=== PATIENT | female | born 1955 | race Caucasian/White ===

== ENCOUNTER → 2019-04-06 | Day surgery (SDC) | payer OTHER | LOC: FMAMMOTONE 11:47 | DX: R92.8 Other abnormal and inconclusive findings on diagnostic imaging of breast (principal) ==

== ENCOUNTER → 2019-05-27 | Day surgery (SDC) | payer OTHER ==
[2019-05-26 16:53] VITALS: BMI 25.4
[~2019-05-27] MED LIST: LIDOCAINE HCL 1%, 10 MG/ML (20ML VIAL) NR ONE; LIDOCAINE HCL 1%, 10 MG/ML (20ML VIAL) ONE; MIDAZOLAM HCL 2 MG/2 ML SINGLE DOSE VIAL ONE; ceFAZolin SODIUM 1 GM VIAL IVPB ONE
[2019-05-27 18:28] VITALS: BP 128/66; PULSE 66; TEMP 98
--- NOTE | 2019-05-28 07:10 | OP ---
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 POSTOPERATIVE DIAGNOSIS: Left breast atypical duct hypoplasia. PROCEDURE: Left breast wide localized lumpectomy. SURGEON: She Serrano MD ANESTHESIA: General. ESTIMATED BLOOD LOSS: Minimal. COMPLICATIONS: None. DISPOSITION: Stable INDICATION FOR PROCEDURE: Patient presented with a screening mammography that noted a cluster of calcifications in the upper left breast. A needle biopsy showed a fibroadenoma with atypical duct hypoplasia. My recommendation was an excision to make sure there is no further upgrade in the lesion. The procedure was left breast wide localized lumpectomy was discussed with her and all of her the questions answered. PROCEDURE IN DETAIL: Patient was brought to [facility] in [place] and taken to breast imaging where a wire was used to localize the clip in the upper left breast. She was then brought into the operating room, and after induction of general anesthesia and IV antibiotics, the left breast was prepped and draped in usual sterile fashion. The area in the upper left breast was anesthetized with 1% lidocaine without epinephrine. A periareolar incision was made in the upper left breast, and the wire that was placed at 12 o'clock approximately 6 cm from the nipple was then used as a guide to get down to the area of interest. This was excised en bloc. Tagged with a long stitch lateral, short stitch superior, sent for a specimen radiograph. Hemostasis assured with electrocautery. The parenchyma approximated with interrupted 2-0 Vicryl, skin approximated with interrupted 3-0 Vicryl, running 4-0 Prolene. A sterile dressing with Tegaderm, 4 x 4 was applied. She tolerated procedure well. specimen radiograph showed the clip and wire to be intact within the specimen. This was then sent to Pathology for permanent section. She was extubated on the operating room table, taken to recovery in good condition. SHE SERRANO M.D. [id number]
--- NOTE | 2019-06-02 11:43 | PATH ---
Surgical Pathology Report Patient Name: JEREMIAS AGOSTO [facility]. Rec. #: [id number] /Age/Gender: 1955 (Age: 63) / F Account: [id number] Location: [facility] SUR[facility]ICAL Taken: 05/27/2019 Received: 05/27/2019 Reported: 06/02/2019 Physicians: She Gonzalez M.D. Specimen(s) Received LEFT BREAST LUMPECTOMY Clinical History Left breast lesion Final Diagnosis LEFT BREAST, LUMPECTOMY: BREAST TISSUE WITH LOBULAR CARCINOMA IN SITU (LCIS), CLASSIC TYPE. FOCAL ATYPICAL DUCTAL HYPERPLASIA (ADH) IDENTIFIED. REMAINING BREAST TISSUE SHOWS CYSTIC AND PAPILLARY APOCRINE METAPLASIA, STROMAL FIBROSIS, AND REACTIVE CHANGES AT PRIOR BIOPSY SITE. Comment: Immunohistochemical stain (block 10 and 14) performed and interpreted at [facility] show membranous expression in the focus of atypical ductal hyperplasia, while loss of membranous expression in the areas of lobular carcinoma in situ. Positive and negative controls (internal if applicable) show appropriate results. Intradepartmental case reviewed with concordance on diagnosis. This case was discussed with Dr. Gonzalez on June 02, 2019. Electronically Signed Patsy Silva M.D. Gross Description Received in formalin, labeled "left breast lumpectomy, long stitch lateral, short stitch superior," is a 27 g, 5.0 x 5.0 x 1.6 cm. crawley-yellow, irregular, portion of fibroadipose tissue with a needle localization wire present. There is a short suture marking the superior aspect and a long suture marking the lateral aspect, per the surgeon. There is no skin or nipple present. The specimen is inked as follows: superior and lateral blue; inferior green; medial yellow; anterior red; deep black. The specimen is serially sectioned from superior to inferior. Sectioning reveals a previous biopsy site surrounded by fibrous tissue with focal hemorrhage. The remaining breast parenchyma displays multifocal white fibrous tissue. No definitive mass is identified. The entire specimen is submitted in 17 cassettes as follows: 1-2: superior margin; 3-15: Sections serially submitted from superior to inferior; 16 to 17: inferior and anterior margins. Time to fixation: Less than one hour Formalin fixation time: Approximately 76 hours ENRIQUE/05/31/2019 howie/05/31/2019
== END | disposition home or self-care (01) ==
LOC: JASU-SURG 09:30
PROVIDERS: ATTEND Surgery
PROC: 0HBU0ZZ Excision of Left Breast, Open Approach (ICD-10-PCS; principal; 2019-05-27 13:00)
DX: D05.02 Lobular carcinoma in situ of left breast (principal); N60.92 Unspecified benign mammary dysplasia of left breast; N64.89 Other specified disorders of breast; N60.32 Fibrosclerosis of left breast
CPT/HCPCS: 19281; 82962; 88307-TC; 88342-TC; 94760